=== PATIENT | female | born 1970 | race African-American/Black ===

== ENCOUNTER 2016-12-25 17:29 | Emergency (ER) | payer BC, OTHER ==
[~2016-12-25] VITALS: Ht 154.9 cm; Wt 75.3 kg
[2016-12-25 18:15] LABS: BILIRUBIN,URINE NEGATIVE (NEG); GLUCOSE,URINE NEGATIVE (NEG); NITRITE,URINE NEGATIVE (NEG); PH,URINE 5.5; PROTEIN,URINE 30 mg/dL (NEG-TRACE); UROBILINOGEN,URINE 0.2 mg/dL (0.2 mg/dL)
[2016-12-25 18:16] LABS: NEG OBC UR NEG; POS OBC UR POS
[2016-12-25 18:20] LABS: BASO # 0.1 x10^3/uL (0.0-0.2); BASO % 1 % (0-3); EOS % 0 % (0-3); HEMATOCRIT 37.1 % (36.0-47.0); HEMOGLOBIN 12.4 g/dL (12.0-15.5); LYMPH # 2.2 x10^3/uL (1.0-4.8); LYMPH % 17 % (24-48); MEAN CORPUSCULAR HEMOGLOBIN 32 pg (25-35); MEAN CORPUSCULAR HGB CONC 34 g/dL (31-37); MEAN CORPUSCULAR VOLUME 95 fL (79-100); MONO % 13 % (0-9); NEUT % 69 % (31-73); PLATELET COUNT 191 x10^3/uL (140-400); RED CELL DISTRIBUTION WIDTH 13.3 % (11.5-14.5); WHITE BLOOD COUNT 12.5 x10^3/uL (4.0-11.0)
[2016-12-25 18:22] LABS: BACTERIA,URINE MODERATE /HPF (0-FEW); WBC,URINE >40 /HPF (0-4)
--- NOTE | 2016-12-25 18:30 | PHYS DOC ---
Past Medical History Past Medical History: Hypertension, Seizure Additional Past Medical Histor: syphillis Past Surgical History: Alcohol Use: Occasionally Drug Use: Marijuana Adult General Chief Complaint Chief Complaint: ABDOMINAL PAIN HPI HPI Patient is a 46 year old female who presents with left-sided abdominal pain that started yesterday. It started while she was laying down, it's been intermittent, it improves when she presses on her abdomen, no associated nausea or vomiting, no injury. She had a small bowel movement today, she believes she had a bowel movement yesterday, she is passing flatus. No dysuria or increased urinary frequency. Denies known fevers, only prior abdominal surgery was a C- section. Not attempted pain control and medication. It intensified this afternoon after work after standing all day. Review of Systems Review of Systems Constitutional: Denies fever or chills [] Eyes: Denies change in visual acuity, redness, or eye pain [] HENT: Denies nasal congestion or sore throat [] Respiratory: Denies cough or shortness of breath [] Cardiovascular: Denies chest pain GI: PEr history of present illness : Denies hematuria [] Musculoskeletal: Denies back pain or joint pain [] Integument: Denies rash or skin lesions [] Neurologic: Denies headache, focal weakness or sensory changes [] Current Medications Current Medications Current Medications Medications (Trade) Dose Ordered Sig/Lynette Start Time Stop Time Status Last Admin Dose Admin Ciprofloxacin (Cipro) 250 mg 1X ONCE 12/25/16 19:30 12/25/16 19:31 DC Ketorolac Tromethamine (Toradol) 30 mg 1X ONCE 12/25/16 19:30 12/25/16 19:31 DC Allergies Allergies Allergies Coded Allergies Type Severity Reaction Last Updated Verified phenytoin Allergy Intermediate rash 12/24/13 Yes Physical Exam Physical Exam Constitutional: Well developed, well nourished, no acute distress, non-toxic appearance. Walked in leaning over holding her left side HENT: Normocephalic, atraumatic, bilateral external ears normal, oropharynx moist, no oral exudates, nose normal. [] Eyes: PERRLA, EOMI, conjunctiva normal, no discharge. [] Neck: Normal range of motion, no tenderness, supple, no stridor. [] Cardiovascular:Heart rate regular rhythm, no murmur [] Lungs & Thorax: Bilateral breath sounds clear to auscultation [] Abdomen: Bowel sounds normal, soft, no tenderness to palpation but patient is actively having pain on the left side, no masses, no pulsatile masses. No guarding or peritoneal signs Skin: Warm, dry, no erythema, no rash. [] Back: No tenderness to palpation or percussion, no CVA tenderness. [] Extremities: No tenderness, no cyanosis, no clubbing, ROM intact, no edema. [] Neurologic: Alert and oriented X 3, normal motor function, normal sensory function, no focal deficits noted. [] Psychologic: Affect normal, judgement normal, mood normal. [] Current Patient Data Vital Signs Vital Signs Date Time Temp Pulse Resp B/P (MAP) Pulse Ox O2 Delivery O2 Flow Rate FiO2 12/25/16 18:00 99.5 80 18 195/95 (128) 97 Room Air 99.5 Lab Values Laboratory Tests Test 12/25/16 17:47 12/25/16 17:50 Urine Collection Type Unknown Urine Color Yellow Urine Clarity Cloudy Urine pH 5.5 Urine Specific [place] 1.010 Urine Protein 30 mg/dL (NEG-TRACE) Urine Glucose (UA) Negative mg/dL (NEG) Urine Ketones (Stick) 15 mg/dL (NEG) Urine Blood Moderate (NEG) Urine Nitrite Negative (NEG) Urine Bilirubin Negative (NEG) Urine Urobilinogen Dipstick 0.2 mg/dL (0.2 mg/dL) Urine Leukocyte Esterase Large (NEG) Urine RBC 3-5 /HPF (0-2) Urine WBC >40 /HPF (0-4) Urine Bacteria Moderate /HPF (0-FEW) Urine Test Negative (NEG) White Blood Count 12.5 x10^3/uL (4.0-11.0) H Red Blood Count 3.90 x10^6/uL (3.50-5.40) Hemoglobin 12.4 g/dL (12.0-15.5) Hematocrit 37.1 % (36.0-47.0) Mean Corpuscular Volume 95 fL (79-100) Mean Corpuscular Hemoglobin 32 pg (25-35) Mean Corpuscular Hemoglobin Concent 34 g/dL (31-37) Red Cell Distribution Width 13.3 % (11.5-14.5) Platelet Count 191 x10^3/uL (140-400) Neutrophils (%) (Auto) 69 % (31-73) Lymphocytes (%) (Auto) 17 % (24-48) L Monocytes (%) (Auto) 13 % (0-9) H Eosinophils (%) (Auto) 0 % (0-3) Basophils (%) (Auto) 1 % (0-3) Neutrophils # (Auto) 8.6 x10^3uL (1.8-7.7) H Lymphocytes # (Auto) 2.2 x10^3/uL (1.0-4.8) Monocytes # (Auto) 1.6 x10^3/uL (0.0-1.1) H Eosinophils # (Auto) 0.0 x10^3/uL (0.0-0.7) Basophils # (Auto) 0.1 x10^3/uL (0.0-0.2) Total Bilirubin 0.5 mg/dL (0.2-1.0) Direct Bilirubin 0.1 mg/dL (0.0-0.2) Aspartate Amino Transferase (AST) 17 U/L (15-37) Alanine Aminotransferase (ALT) 15 U/L (14-59) Alkaline Phosphatase 66 U/L (46-116) Total Protein 8.3 g/dL (6.4-8.2) H Albumin 3.6 g/dL (3.4-5.0) Lipase 59 U/L (73-393) L Laboratory Tests 12/25/16 17:50 EKG EKG [] Course & Med Decision Making Course & Med Decision Making Pertinent Labs and Imaging studies reviewed. (See chart for details) Patient's urine test ordered, labs and urinalysis, given IV Toradol UA shows significant urinary tract infection. First dose of oral Cipro given here in the ED. Urine culture is pending. I explained the patient that she needs to follow up to ensure resolves, also instructed patient follow-up regarding her elevated blood pressure to have it rechecked by primary care physician. Dragon Disclaimer Dragon Disclaimer This electronic medical record was generated, in whole or in part, using a voice recognition dictation system. Departure Departure Impression: Primary Impression: Abdominal pain Additional Impression: Elevated blood pressure reading Referrals: UNKNOWN PCP NAME (PCP) Scripts Ciprofloxacin Hcl (CIPRO) 250 Mg Tablet 1 TAB PO BID, #10 TAB Prov: ANDI TORRES MD 12/25/16 Ibuprofen (IBUPROFEN) 600 Mg Tablet 600 MG PO PRN Q6HRS Y for PAIN, #20 TAB take with food or milk Prov: ANDI TORRES MD 12/25/16 Problem Qualifiers ANDI TORRES MD Dec 25, 2016 18:30
[2016-12-25 18:42] LABS: ALBUMIN 3.6 g/dL (3.4-5.0); DIRECT BILIRUBIN 0.1 mg/dL (0.0-0.2); TOTAL BILIRUBIN 0.5 mg/dL (0.2-1.0); TOTAL PROTEIN 8.3 g/dL (6.4-8.2)
[2016-12-25] MEDS ORDERED: KETOROLAC TROMETHAMINE 30 MG/ML INJ. IV ONE (19:30)
[2016-12-25] MEDS ORDERED: CIPROFLOXACIN HCL 250 MG TABLET. PO ONE (19:30)
[2016-12-25] MEDS ORDERED: CIPR250T30 PO (19:58)
[2016-12-25] MEDS ORDERED: IBUP-1007 PO (19:58)
[2016-12-25 20:00] VITALS: BP 160/90
--- NOTE | 2016-12-27 16:34 | VNOTE ---
CALL BACK NOTE CALL BACK Microbiology 12/25/16 Urine Culture - Final, Complete 12/25/16 Urine Culture Result 1 (RUI) - Final, Complete 12/25/16 Antimicrobic Susceptibility - Final, Complete Patient's urine was positive for Escherichia coli. She is placed on Cipro at discharge according to the culture and sensitivity the Escherichia coli is sensitive to Cipro no change in antibiotics needed at this time. CORRINE NEWBERRY APRN Dec 27, 2016 16:34
== END 2016-12-25 20:20 | disposition home or self-care (01) ==
LOC: ER 17:29
DX: R10.9 Unspecified abdominal pain (principal); I10 Essential (primary) hypertension; Z88.8 Allergy status to other drugs, medicaments and biological substances
CPT/HCPCS: 36415; 80076; 81001; 81025; 83690; 85025; 87086; 96374; 99284; J1885